=== PATIENT | male | born 1955 | race Caucasian/White ===

== ENCOUNTER 2020-04-20 04:55 | Emergency (ER) | payer BC ==
[~2020-04-20] VITALS: Ht 182.9 cm; Wt 177.3 kg
[2020-04-20] MEDS ORDERED: PRIL20TA2 PO (05:13)
[2020-04-20] MEDS ORDERED: METF-838 PO (05:13)
[2020-04-20] MEDS ORDERED: ATOR40TA75 PO (05:13)
[2020-04-20] MEDS ORDERED: AMLO10TA PO (05:13)
[2020-04-20] MEDS ORDERED: dexameTHASONE 20MG/5ML VIAL (J1100 PER 1MG) IV ONE (05:45)
[2020-04-20] MEDS ORDERED: ACETAMINOPHEN *IV* 1,000 MG in IV 1 EA IV ONE (05:45)
--- NOTE | 2020-04-20 06:35 | REPVR ---
PROCEDURE INFORMATION: Exam: CT Abdomen And Pelvis Without Contrast Exam date and time: 04/20/2020 5:57 AM Age: 64 years old Clinical indication: Abdominal pain; Additional info: Pain @ R iliac crest TECHNIQUE: Imaging protocol: Computed tomography of the abdomen and pelvis without contrast. Radiation optimization: All CT scans at this facility use at least one of these dose optimization techniques: automated exposure control; mA and/or kV adjustment per patient size (includes targeted exams where dose is matched to clinical indication); or iterative reconstruction. COMPARISON: No relevant prior studies available. FINDINGS: Limitations: Limited by patient's body habitus. Lungs: Patchy airspace focal areas of consolidation and ground-glass opacities, correlate for infection. Liver: Normal. No mass. Gallbladder and bile ducts: Normal. No calcified stones. No ductal dilation. Pancreas: Normal. No ductal dilation. Spleen: Normal. No splenomegaly. Adrenal glands: Normal. No mass. Kidneys and ureters: Normal. No hydronephrosis. Stomach and bowel: Unremarkable. No obstruction. No mucosal thickening. Appendix: No evidence of appendicitis. Intraperitoneal space: Incidental mesenteric mass with calcification measuring 5.2 x 3.5 x 3.7 cm. Vasculature: Unremarkable. No abdominal aortic aneurysm. Lymph nodes: Correlate for carcinoid tumor or lymphoma among other etiologies such as metastases or fibrotic lesion. Urinary bladder: Unremarkable as visualized. Reproductive: Unremarkable as visualized. Bones/joints: Iliac crest unremarkable. Moderate lumbar spondylosis. Soft tissues: Unremarkable. IMPRESSION: 1. Patchy airspace focal areas of consolidation and ground-glass opacities, correlate for infection. 2. Incidental mesenteric mass with calcification measuring 5.2 x 3.5 x 3.7 cm. Correlate for carcinoid tumor or lymphoma among other etiologies such as metastases or fibrotic lesion. 3. Iliac crest unremarkable. 4. Moderate lumbar spondylosis. 5. Dysplastic and atrophic right kidney with small benign cyst measuring 1 cm. COMMENTS: Consistent with the [employer]'s Incidental Findings Committee white paper ([employer] 2018): Any incidental renal lesion less than 1 cm or classified as too small to characterize, or any incidental cystic renal lesion characterized as simple-appearing, is likely benign. No follow-up imaging is recommended for these lesions per consensus recommendations based on imaging criteria. Electronically signed by: Marbin Bazan On 04/20/2020 06:34:48 AM
[2020-04-20 06:54] VITALS: BP 148/64
== END 2020-04-20 06:56 | disposition home or self-care (01) ==
LOC: M ED 04:55
DX: M54.5 Low back pain (principal); R93.5 Abnormal findings on diagnostic imaging of other abdominal regions, including retroperitoneum; R91.8 Other nonspecific abnormal finding of lung field; E66.9 Obesity, unspecified; E11.9 Type 2 diabetes mellitus without complications; I10 Essential (primary) hypertension; E78.5 Hyperlipidemia, unspecified; K21.9 Gastro-esophageal reflux disease without esophagitis; M47.816 Spondylosis without myelopathy or radiculopathy, lumbar region; N28.1 Cyst of kidney, acquired; Z88.8 Allergy status to other drugs, medicaments and biological substances
CPT/HCPCS: 74176; 96374; 99284; J0131; J1100